=== PATIENT | male | born 1960 ===

== ENCOUNTER 2021-07-15 12:07 | Emergency (ER) | payer OTHER ==
[~2021-07-15] VITALS: Ht 180.3 cm; Wt 98.9 kg
[2021-07-15 12:20] VITALS: BP 160/81
[2021-07-15] MEDS ORDERED: LIDOCAINE 1% HCL (LOCAL ANESTH.) INJ 20ML MDV ID ONE (17:00)
[2021-07-15] MEDS ORDERED: cefTRIAXone SOD 1,000 MG VL IM ONE (17:15)
[2021-07-15] MEDS ORDERED: NEOMYCIN-BACITRACIN-POLYM UNITDOSE PKG TOP OINT TOP ONE (17:15)
[2021-07-15] MEDS ORDERED: TETANUS-DIPTH-ACEL PERTUSSIS 0.5ML SYR Tdap IM ONE (17:15)
[2021-07-15] MEDS ORDERED: CEPH-509 PO (18:16)
[2021-07-15] MEDS ORDERED: IBUP800T27 PO (18:16)
== END 2021-07-15 18:34 | disposition home or self-care (01) ==
LOC: ER 12:23
DX: S62.637A Displaced fracture of distal phalanx of left little finger, initial encounter for closed fracture (principal); S61.217A Laceration without foreign body of left little finger without damage to nail, initial encounter; Z79.1 Long term (current) use of non-steroidal anti-inflammatories (NSAID); Z79.899 Other long term (current) drug therapy; W23.0XXA Caught, crushed, jammed, or pinched between moving objects, initial encounter; Y93.89 Activity, other specified; Y92.89 Other specified places as the place of occurrence of the external cause; Y99.8 Other external cause status
CPT/HCPCS: 12001; 73130; 90471; 90715; 96372; 99284; J0696; J2001